=== PATIENT | male | born 1950 | race Two or more races ===

== ENCOUNTER 2020-08-15 19:02 | Inpatient (IN) | payer OTHER, SELFPAY ==
[2020-08-15] VITALS (20 sets, daily range): BP systolic 178–232; BP diastolic 101–155; PULSE 100–147; RESP 16–27; TEMP 36.4–36.7; O2SAT 95–98; BMI 20.3
--- NOTE | 2020-08-15 19:06 | XR_ITS ---
PROCEDURE INFORMATION: Exam: XR Chest Exam date and time: 08/15/2020 7:06 PM Age: 70 years old Clinical indication: Sternal or substernal pain; Patient HX: Chest pain TECHNIQUE: Imaging protocol: XR of the chest. Views: 1 view. COMPARISON: No relevant prior studies available. FINDINGS: Airway: The airways are patent. Lungs: No acute interstitial or airspace disease. Pleural spaces: There are no pleural effusions present. There is no evidence of pneumothorax. Heart/Mediastinum: Heart is of normal size and morphology. Bones/joints: No acute skeletal abnormality or aggressive osseous lesion. IMPRESSION: Negative for acute thoracic pathology.
--- NOTE | 2020-08-15 19:06 | HMH.EDGENADL ---
ED Disposition Clinical Impression: Alcohol use disorder Pancreatitis Qualifiers: Chronicity: acute Pancreatitis type: alcohol induced Acute pancreatitis complication: unspecified Qualified Code(s): K85.20 - Alcohol induced acute pancreatitis without necrosis or infection Disposition: Admitted As Inpatient Condition on Discharge: Fair - Critical Care Critical Care Time: No Attestation: On , the high probability of a clinically significant, sudden or life threatening deterioration of the following system(s) required my full and direct attention, intervention and personal management. The time I documented below is in addition to time spent performing reported procedures but includes the following listed in this critical care notation. Medical Decision Making - Medical Records Medical records reviewed: Yes: I reviewed the patient's medical records. - Regino Inquiry Pt receiving controlled substance: No Vital Signs: 08/15/20 19:02 08/15/20 19:09 08/15/20 19:14 Temperature Pulse Rate 130 H 130 H Pulse Rate [Left Radial] 127 H Respiratory Rate 20 24 25 H Blood Pressure 178/118 H Blood Pressure [Right Arm] 196/155 H Blood Pressure Mean Blood Pressure Mean [Right Arm] 168 Blood Pressure Source Manual Cuff/ Auscultation Blood Pressure Source [Right Arm] Automatic Cuff Blood Pressure Position Standing Blood Pressure Position [Right Arm] Sitting 02 Sat by Pulse Oximetry 96 95 95 Oxygen Delivery Method Room Air Room Air 08/15/20 19:15 08/15/20 19:25 08/15/20 19:30 Temperature Pulse Rate 136 H 124 H 121 H Pulse Rate [Left Radial] Respiratory Rate 24 24 Blood Pressure 202/125 H 202/121 H Blood Pressure [Right Arm] Blood Pressure Mean 153 148 Blood Pressure Mean [Right Arm] Blood Pressure Source Blood Pressure Source [Right Arm] Blood Pressure Position Blood Pressure Position [Right Arm] 02 Sat by Pulse Oximetry 96 97 96 Oxygen Delivery Method 08/15/20 19:38 08/15/20 19:45 08/15/20 20:00 Temperature Pulse Rate 122 H 121 H 126 H Pulse Rate [Left Radial] Respiratory Rate 27 H 24 25 H Blood Pressure 214/124 H 214/126 H Blood Pressure [Right Arm] Blood Pressure Mean 154 163 Blood Pressure Mean [Right Arm] Blood Pressure Source Blood Pressure Source [Right Arm] Blood Pressure Position Blood Pressure Position [Right Arm] 02 Sat by Pulse Oximetry 97 97 97 Oxygen Delivery Method 08/15/20 20:23 08/15/20 20:30 08/15/20 22:03 Temperature Pulse Rate 147 H 132 H 120 H Pulse Rate [Left Radial] Respiratory Rate Blood Pressure 207/124 H Blood Pressure [Right Arm] Blood Pressure Mean 151 Blood Pressure Mean [Right Arm] Blood Pressure Source Blood Pressure Source [Right Arm] Blood Pressure Position Blood Pressure Position [Right Arm] 02 Sat by Pulse Oximetry 98 98 96 Oxygen Delivery Method 08/15/20 22:09 08/15/20 22:10 08/15/20 22:16 Temperature Pulse Rate 122 H 122 H 121 H Pulse Rate [Left Radial] Respiratory Rate 18 18 16 Blood Pressure 232/123 H 193/118 H 193/120 H Blood Pressure [Right Arm] Blood Pressure Mean 159 146 156 Blood Pressure Mean [Right Arm] Blood Pressure Source Blood Pressure Source [Right Arm] Blood Pressure Position Blood Pressure Position [Right Arm] 02 Sat by Pulse Oximetry 95 Oxygen Delivery Method 08/15/20 22:22 08/15/20 22:35 Temperature 98.1 F Pulse Rate 115 H 100 H Pulse Rate [Left Radial] Respiratory Rate 16 18 Blood Pressure 185/124 H 196/107 H Blood Pressure [Right Arm] Blood Pressure Mean 148 Blood Pressure Mean [Right Arm] Blood Pressure Source Blood Pressure Source [Right Arm] Blood Pressure Position Blood Pressure Position [Right Arm] 02 Sat by Pulse Oximetry 96 Oxygen Delivery Method - Lab Data Lab Results 08/15/20 19:06: WBC 18.8 H, RBC 5.33, Hgb 16.3, Hct 49.1, MCV 92.1, MCH 30.
[2020-08-15 19:16] LABS: Basophils # 0.1 K/mm3 (0-0.2); Basophils % 0.2 % (0.1-2.0); Eosinophils # 0.1 K/mm3 (0.0-0.4); Eosinophils % 0.3 % (0.1-12.0); Hematocrit 49.1 % (42.0-52.0); Hemoglobin 16.3 g/dL (14.1-18.0); Lymphocytes # 0.4 K/mm3 (0.7-4.5); Lymphocytes % 2.2 % (10-50); Mean Corpuscular HGB Conc 33.2 g/dL (31.8-35.4); Mean Corpuscular Hemoglobin 30.6 pg (27.0-31.2); Mean Corpuscular Volume 92.1 fl (80-94); Mean Platelet Volume 7.5 fl (7.4-10.4); Monocytes # 0.6 K/mm3 (0.1-1.0); Monocytes % 3.4 % (1.7-9.3); Neutrophils # 17.7 K/mm3 (1.8-7.8); Neutrophils % 93.9 % (37.0-80.0); Platelet Count 181 K/mm3 (142-424); Red Blood Count 5.33 M/mm3 (4.60-6.20); Red Cell Distribution Width 14.2 % (11.5-17.5); White Blood Count 18.8 K/mm3 (4.8-10.8)
[2020-08-15 19:25] LABS: Alanine Aminotransferase 70 U/L (12-78); Albumin Level 4.6 g/dl (3.5-5.0); Albumin/Globulin Ratio 1.1 (1.1-1.8); Alkaline Phosphatase 151 U/L (38-126); Anion Gap 21.4 mEq/L (5-15); Aspartate Amino Transferase 99 U/L (17-59); Bilirubin,Total 1.1 mg/dl (0.2-1.3); Blood Urea Nitrogen 12 mg/dl (9-20); Calcium 8.4 mg/dl (8.4-10.2); Carbon Dioxide 21 mmol/L (22.0-30.0); Chloride 102 mmol/L (98-107); Creatinine Clearance Estimated 56 mL/min (50-200); Estimated Glomerular Filt Rate 111 ml/min (>60); Ethyl Alcohol 63 mg/dl (0-10); GFR (African American) 134 ML/MIN (>60); Globulin 4.1 g/dL (1.3-3.2); Glucose 146 mg/dl (74-100); Potassium 3.4 mmoL/L (3.5-5.1); Sodium 141 mmol/L (136-145); Total Protein,Serum 8.7 g/dl (6.3-8.2)
[2020-08-15 19:28] LABS: MANUAL DIFFERENTIAL MANUAL DIFFERENTIAL (MANUAL DIFF)
[2020-08-15 19:34] LABS: D-Dimer 1.94 ug/mL (0.0-0.5)
[2020-08-15 19:37] LABS: Lipase 2139 U/L (23-300)
[2020-08-15 19:39] LABS: Troponin I 0.02 ng/ml (0.00-0.034)
--- NOTE | 2020-08-15 19:47 | CT_ITS ---
PROCEDURE INFORMATION: Exam: CTA Chest With Contrast Exam date and time: 08/15/2020 7:47 PM Age: 70 years old Clinical indication: Sternal or substernal pain; Patient HX: Chest pain with elevated d dimer (1.94); Additional info: Chest pain, elevated d-dimer TECHNIQUE: Imaging protocol: Computed tomographic angiography of the chest with contrast. 3D rendering (Not supervised by radiologist): MIP and/or 3D reconstructed images were created by the technologist. Radiation optimization: All CT scans at this facility use at least one of these dose optimization techniques: automated exposure control; mA and/or kV adjustment per patient size (includes targeted exams where dose is matched to clinical indication); or iterative reconstruction. Contrast material: ISOVUE 370; Contrast volume: 70 ml; Contrast route: INTRAVENOUS (IV); COMPARISON: CR XR CHEST PORTABLE 08/15/2020 7:17 PM FINDINGS: Pulmonary arteries: No pulmonary emboli noted within the main pulmonary arteries or proximal segmental branches. Distal segmental branches are obscured by respiratory motion. Aorta: The aorta is normal. Left vertebral artery arises directly from the aortic arch, a normal variant. Thyroid: The thyroid gland is normal. Lungs: There is subpleural atelectasis of the dependent portions of the lungs. Lung parenchyma is mildly obscured by respiratory motion. Grossly, no acute interstitial or airspace disease is noted. The airways are patent. Pleural spaces: Unremarkable. No pneumothorax. No pleural effusion. Heart: The heart is mildly enlarged. There is mild atherosclerotic calcification of the coronary arteries. No pericardial thickening or effusion. Lymph nodes: Unremarkable. No enlarged lymph nodes. Intraperitoneal space: Severe pancreatic parenchymal inflammation and peripancreatic fat stranding/free fluid. Bones/joints: Multilevel old/healed right rib fractures. Multilevel old/healed left rib fractures. No acute skeletal pathology. Mild multilevel degenerative changes of the spine, as manifested by multilevel anterior osteophytes and multilevel decrease in intervertebral disc space. Soft tissues: Unremarkable. Other findings: No other acute findings in the visualized upper abdominal organs. IMPRESSION: 1. No pulmonary emboli noted within the main pulmonary arteries or proximal segmental branches. Distal segmental branches are obscured by respiratory motion. 2. Partially visualized severe acute pancreatitis. Consider correlation with contrast enhanced abdomen and pelvic CT. 3. No other acute thoracic pathology is identified. 4. Incidental findings as detailed above.
[2020-08-15 19:56] LABS: Neutrophils % 95 % (42-76); Total Cells Counted 100
[2020-08-15 19:57] LABS: Platelet Estimate Normal; RBC Morphology Normal
--- NOTE | 2020-08-15 20:00 | ECG_ITS ---
APPROVED REPORT Exam: Resting ECG HR:131 bpm ECG Measurements Heart Rate 131 AXES KS 138 P 74 QRSd 92 QRS 97 QT 306 T 51 QTc 451 Conclusion Sinus tachycardia Late r wave progression Isolated q in iii of questionable significance Abnormal ECG Electronically signed by : Ezekiel Acosta, 08/16/2020 07:10:30
--- NOTE | 2020-08-15 22:44 | PC.NURSE ---
patient up to floor via wheelchair.
[2020-08-16] VITALS (8 sets, daily range): BP systolic 145–152; BP diastolic 87–90; PULSE 94–150; RESP 16–28; TEMP 36.6–37.1; O2SAT 90–98; BMI 20.3
[2020-08-16] LABS: Troponin I 0.02 ng/ml (0.00-0.034)
[2020-08-16 01:49] LABS: Troponin I 0.03 ng/ml (0.00-0.034)
--- NOTE | 2020-08-16 03:41 | PC.NURSE ---
Pt remains confused. Is alert to self only. Has slept at intervals. Denies any pain or discomfort. CIWA is currently a 3. Pt was given a shower shortly after arrival to floor. He was noted to have urine stains to pants. He ambulates with assist x1. Medication administered per mar. Safety measures in place. New IV placed in RFA after pt dislodged prior IV. No other concerns at this time. Will continue to monitor.
[2020-08-16 07:10] LABS: Basophils # 0.1 K/mm3 (0-0.2); Basophils % 0.3 % (0.1-2.0); Eosinophils # 0.3 K/mm3 (0.0-0.4); Eosinophils % 1.4 % (0.1-12.0); Hematocrit 45.4 % (42.0-52.0); Hemoglobin 15.9 g/dL (14.1-18.0); Lymphocytes # 0.5 K/mm3 (0.7-4.5); Lymphocytes % 2.5 % (10-50); Mean Corpuscular Hemoglobin 31.5 pg (27.0-31.2); Mean Platelet Volume 7.8 fl (7.4-10.4); Monocytes # 0.4 K/mm3 (0.1-1.0); Monocytes % 1.9 % (1.7-9.3); Neutrophils # 17.5 K/mm3 (1.8-7.8); Platelet Count 120 K/mm3 (142-424); Red Blood Count 5.05 M/mm3 (4.60-6.20); Red Cell Distribution Width 14.3 % (11.5-17.5); White Blood Count 18.6 K/mm3 (4.8-10.8)
[2020-08-16 07:22] LABS: Alanine Aminotransferase 76 U/L (12-78); Albumin Level 4.1 g/dl (3.5-5.0); Albumin/Globulin Ratio 1.2 (1.1-1.8); Alkaline Phosphatase 122 U/L (38-126); Bilirubin,Total 2.2 mg/dl (0.2-1.3); Blood Urea Nitrogen 15 mg/dl (9-20); Carbon Dioxide 19 mmol/L (22.0-30.0); Chloride 107 mmol/L (98-107); Creatinine Clearance Estimated 56 mL/min (50-200); Estimated Glomerular Filt Rate 111 ml/min (>60); GFR (African American) 134 ML/MIN (>60); Globulin 3.5 g/dL (1.3-3.2); Glucose 174 mg/dl (74-100); Magnesium 2.3 mg/dl (1.6-2.3); Phosphorous 3.2 mg/dl (2.5-4.5); Sodium 136 mmol/L (136-145); Total Protein,Serum 7.6 g/dl (6.3-8.2)
[2020-08-16 07:25] LABS: MANUAL DIFFERENTIAL MANUAL DIFFERENTIAL (MANUAL DIFF)
[2020-08-16 07:28] LABS: Aspartate Amino Transferase 138 U/L (17-59)
[2020-08-16 08:25] LABS: POC Glucose,Bedside 182 (70-110)
--- NOTE | 2020-08-16 09:17 | HMH.PHAVTE ---
[facility] Pharmacy VTE Monitoring - Patient Demographics Admission date: 08/15/20 Report Date: 08/16/20 Time: 09:17 Allergies/Adverse Reactions: Patient Allergies No Known Allergies Allergy (Verified 08/15/20 19:06) Height: 1.7 m Weight: 58.9 kg Patient Problems: Current Active Problems Pancreatitis (Acute) Alcohol use disorder (Acute) - VTE Risk Labs: VTE Related Lab Results Hgb 15.9 g/dL (14.1-18.0) 08/16/20 07:00 Hct 45.4 % (42.0-52.0) 08/16/20 07:00 Plt Count 120 K/mm3 (142-424) L D 08/16/20 07:00 BUN 15 mg/dl (9-20) 08/16/20 07:00 Creatinine 0.70 mg/dl (0.66-1.25) 08/16/20 07:00 Estimated Creat Clear 56 mL/min (50-200) 08/16/20 07:00 - Prophylaxis VTE Prophylaxis Ordered?: Yes Types of VTE Prophylaxis: TEDS Knee High, Pharmacological Location of Applied Device: Bilateral Lower Extremeties Pharmacologic Type: Enoxaparin
[2020-08-16 09:21] LABS: Amylase 149 U/L (30-110)
[2020-08-16 09:31] LABS: Lipase 753 U/L (23-300)
[2020-08-16 10:05] LABS: Eosinophils % 1 % (0-3); Lymphocytes % 2 % (10-50); Monocytes % 3 % (2-9); Neutrophils % 94 % (42-76); Total Cells Counted 100
[2020-08-16 10:06] LABS: Platelet Estimate Normal
[2020-08-16 10:07] LABS: Hypochromasia 1+; Microcytosis 1+
--- NOTE | 2020-08-16 10:25 | HMH.HP ---
*Admission Date: 08/15/20 *Chief complaint: abd pain *History of present illness: 70-year-old male presented to the emergency department with chest pain. Pain started yesterday evening. It is described as a burning, tightness located near his sternum per er note. Does not radiate to the jaw, back, arm. Admits to daily alcohol use, about 6 beers. Denies whiskey. No history of coronary artery disease or hypertension. No tobacco use. No recent illness, fevers, chills, nausea, vomiting. No lower extremity swelling or palpitations. per dr note this am pt laying in bed opens eyes when spoken to and nods head when asked if abd hurts. pt admitted for monitoring of labs and iv fluids. [facility] History I have reviewed the patient's past medical history: Yes Medical History: Reports:: Coronary Artery Disease, Hypertension *Have you ever received a pneumonia vaccine?: No *Have you received a flu vaccine this season?: No - *Social History Smoking Status: Unknown if ever smoked Alcohol Intake: current *Occupational Status:: employed *Travel in the last 8 weeks: Outside the [facility] Family Hx:: Unable to obtain Review of Systems - Review of Systems Review of systems:: pertinent systems reviewed and negative unless documented below - Constitutional Denies chills, Denies weight loss - Eyes Denies change in vision - ENT Denies bleeding gums - *Cardiovascular Reports chest pain, Reports chest pain with activity - *Respiratory Denies chest congestion - *Gastrointestinal Reports abdominal pain, Reports nausea - *Genitourinary Denies urinary frequency - *Musculoskeletal Denies decreased muscle mass - Integumentary/Breasts Denies rash - *Neurologic Denies dizziness, Denies headache(s), Denies numbness - Psychiatric Denies lack of enjoyment - Endocrine Denies excessive sweating - Hematologic/Lymphatic Denies easy bruising - Allergic/Immunologic Denies GI upset with certain foods Meds Home Medications Medication Instructions Recorded Confirmed Type No Known Home Medications 08/15/20 08/16/20 History Allergies Allergy/AdvReac Type Severity Reaction Status Date / Time No Known Allergies Allergy Verified 08/15/20 19:06 Exam Vital signs and Labs for Last 24 Hours: Temp Pulse Resp BP Pulse Ox 97.8 F 118 H 16 148/88 H 97 08/16/20 07:25 08/16/20 07:25 08/16/20 07:25 08/16/20 07:25 08/16/20 07:25 Laboratory Results - last 24 hr 08/15/20 19:06: WBC 18.8 H, RBC 5.33, Hgb 16.3, Hct 49.1, MCV 92.1, MCH 30.6, MCHC 33.2, RDW 14.2, Plt Count 181, MPV 7.5, Neut % (Auto) 93.9 H, Lymph % (Auto) 2.2 L, Lipscomb % (Auto) 3.4, Eos % (Auto) 0.3, Baso % (Auto) 0.2, Neut # (Auto) 17.7 H, Lymph # (Auto) 0.4 L, Lipscomb # (Auto) 0.6, Eos # (Auto) 0.1, Baso # (Auto) 0.1, Total Counted 100, Neutrophils % (Manual) 95 H, Band Neutrophils % 5.0, Platelet Estimate Normal, RBC Morphology Normal 08/15/20 19:06: Sodium 141, Potassium 3.4 L, Chloride 102, Carbon Dioxide 21 L, Anion Gap 21.4 H, BUN 12, Creatinine 0.70, Estimated Creat Clear 56, Estimated GFR 111, Est GFR ( Amer) 134, Glucose 146 H, Calcium 8.4, Total Bilirubin 1.1, AST 99 H, ALT 70, Alkaline Phosphatase 151 H, Troponin I 0.02, Total Protein 8.7 H, Albumin 4.6, Globulin 4.1 H, Albumin/Globulin Ratio 1.1, Lipase 2139 H 08/15/20 19:06: Plasma/Serum Alcohol 63 H 08/15/20 19:15: D-Dimer 1.94 H 08/15/20 23:25: Troponin I 0.02 08/16/20 01:22: Troponin I 0.03 08/16/20 07:00: WBC 18.6 H, RBC 5.05, Hgb 15.9, Hct 45.4, MCV 90.0, MCH 31.5 H, MCHC 35.0, RDW 14.3, Plt Count 120 L D, MPV 7.8, Neut % (Auto) 94.0 H, Lymph % (Auto) 2.5 L, Lipscomb % (Auto) 1.9, Eos % (Auto) 1.4, Baso % (Auto) 0.3, Neut # (Auto) 17.5 H, Lymph # (Auto) 0.5 L, Lipscomb # (Auto) 0.4, Eos # (Auto) 0.3, Baso # (Auto) 0.1, Total Counted 100, Neutrophils % (Manual) 94 H, Lymphocytes % (Manual) 2 L, Monocytes % (Manual) 3, Eosinophils % (Manual) 1, Platelet Estimate Normal, Hypochromasia 1
[2020-08-16 11:38] LABS: POC Glucose,Bedside 176 (70-110)
[2020-08-16 20:25] LABS: POC Glucose,Bedside 182 (70-110)
[2020-08-17] VITALS (10 sets, daily range): BP systolic 115–141; BP diastolic 75–93; PULSE 107–132; RESP 16–26; TEMP 36.1–36.9; O2SAT 92–99; BMI 20.1
--- NOTE | 2020-08-17 02:33 | PC.NURSE ---
Addendum entered by Emma Andrade RN 08/17/20 05:08: patient opened eyes, made eye contact with nurse, smiled and tried to belt picker wrapper on blanket. Still doesn't respond to questions. Although patient seems more alert than previously it was time for another dose of Ativan which was administered. Patient shows no s/s of acute distress at this time. Has call light within reach, bed at lowest level; will continue to monitor. Original Note: phoned into auto service writer while doing the assessment. Patient able to state his name. Received bed bath this shift, applied mouth swab to mouth. [id number] called for status of patient; her main concern is BP and heart rate. Patient BP elevated first part of shift with HR in 130 & 140's with scheduled Ativan administered and CIWA score 2. Call light in reach, bed at lowest level; Will continue to monitor.
[2020-08-17 05:07] LABS: POC Glucose,Bedside 187 (70-110)
[2020-08-17 06:39] LABS: Basophils % 0.2 % (0.1-2.0); Eosinophils # 0.1 K/mm3 (0.0-0.4); Eosinophils % 0.5 % (0.1-12.0); Hematocrit 44.2 % (42.0-52.0); Lymphocytes # 0.8 K/mm3 (0.7-4.5); Lymphocytes % 5.5 % (10-50); Mean Corpuscular Hemoglobin 30.8 pg (27.0-31.2); Mean Corpuscular Volume 90.6 fl (80-94); Mean Platelet Volume 9.6 fl (7.4-10.4); Monocytes # 0.4 K/mm3 (0.1-1.0); Monocytes % 3.2 % (1.7-9.3); Neutrophils # 12.5 K/mm3 (1.8-7.8); Neutrophils % 90.7 % (37.0-80.0); Platelet Count 89 K/mm3 (142-424); Red Blood Count 4.87 M/mm3 (4.60-6.20); Red Cell Distribution Width 14.3 % (11.5-17.5); White Blood Count 13.8 K/mm3 (4.8-10.8)
[2020-08-17 06:41] LABS: MANUAL DIFFERENTIAL MANUAL DIFFERENTIAL (MANUAL DIFF)
[2020-08-17 06:44] LABS: Chloride 106 mmol/L (98-107); Potassium 3.9 mmoL/L (3.5-5.1); Sodium 138 mmol/L (136-145)
[2020-08-17 06:47] LABS: Amylase 65 U/L (30-110); Anion Gap 9.9 mEq/L (5-15); Blood Urea Nitrogen 31 mg/dl (9-20); Calcium 8.2 mg/dl (8.4-10.2); Carbon Dioxide 26 mmol/L (22.0-30.0); Creatinine Clearance Estimated 50 mL/min (50-200); Estimated Glomerular Filt Rate 66 ml/min (>60); GFR (African American) 80 ML/MIN (>60); Glucose 196 mg/dl (74-100); Lipase 288 U/L (23-300)
--- NOTE | 2020-08-17 09:23 | P.PN_ITS ---
Internal Medicine - PN: Subj *Date: 08/17/20 *Time: 16:19 Interval history: 70-year-old male patient lying in bed resting quietly with eyes closed, awakens to verbal stimuli. Denies pain when abdomen is palpated. Patient still tachycardic heart rate in the 120s, room air oxygen saturation 93% Exam Vital signs and Labs for Last 24 Hours: Temp Pulse Resp BP Pulse Ox 98.1 F 130 H 20 136/83 93 L 08/17/20 08:10 08/17/20 08:10 08/17/20 08:10 08/17/20 08:10 08/17/20 08:10 Laboratory Results - last 24 hr 08/16/20 07:00: Total Counted 100, Neutrophils % (Manual) 94 H, Lymphocytes % (Manual) 2 L, Monocytes % (Manual) 3, Eosinophils % (Manual) 1, Platelet Estimate Normal, Hypochromasia 1+, Microcytosis 1+ 08/16/20 07:00: Amylase 149 H, Lipase 753 H 08/16/20 11:26: POC Glucose 176 H 08/16/20 20:16: POC Glucose 182 H 08/17/20 04:49: POC Glucose 187 H 08/17/20 06:20: Amylase 65 D, Lipase 288 08/17/20 06:20: WBC 13.8 H D, RBC 4.87, Hgb 15.0, Hct 44.2, MCV 90.6, MCH 30.8, MCHC 34.0, RDW 14.3, Plt Count 89 L D, MPV 9.6, Neut % (Auto) 90.7 H, Lymph % (Auto) 5.5 L, Stanly % (Auto) 3.2, Eos % (Auto) 0.5, Baso % (Auto) 0.2, Neut # (Auto) 12.5 H, Lymph # (Auto) 0.8, Stanly # (Auto) 0.4, Eos # (Auto) 0.1, Baso # (Auto) 0.0 08/17/20 06:20: Sodium 138, Potassium 3.9, Chloride 106, Carbon Dioxide 26 D, Anion Gap 9.9, BUN 31 H D, Creatinine 1.10 D, Estimated Creat Clear 50, Estimated GFR 66, Est GFR ( Amer) 80 D, Glucose 196 H, Calcium 8.2 L I & O for Last 24 hours: Intake & Output 08/14/20 08/15/20 08/16/20 08/17/20 23:59 23:59 23:59 23:59 Intake Total 1999 0 / 0 0 / 0 Balance 1999 0 / 0 0 / 0 Weight 129 lb 13.636 oz 129 lb 13.636 oz 128 lb 7 oz - Constitutional no acute distress, thin, chronically ill appearing - *Routine HEENT Exam Head: Present: normocephalic Eye: Present: EOMI ENT: Present: mucous membranes dry - *Routine Neck Exam Present: trachea midline. Absent: tracheal deviation - *Routine Respiratory Exam Present: CTA bilaterally. Absent: accessory muscle use - *Routine Cardiovascular Exam Present: RRR - *Routine Abdominal Exam Present: soft, normoactive bowel sounds. Absent: tenderness, distended - *Routine Extremities Exam Present: full ROM, pulses intact. Absent: cyanosis, clubbing, edema - *Routine Skin Exam Present: intact, warm, jaundice. Absent: cyanosis - *Routine Neurological Exam Present: alert. Absent: motor deficit, pronator drift - Routine Psychiatric Exam Present: unable to assess Assessment and Plan (1) Alcohol use disorder Status: Acute Category: Medical (2) Pancreatitis Status: Acute Qualifiers: Chronicity: acute Pancreatitis type: alcohol induced Acute pancreatitis complication: unspecified Qualified Code(s): K85.20 - Alcohol induced acute pancreatitis without necrosis or infection Category: Medical Code(s): K85.90 - Acute pancreatitis without necrosis or infection, unspecified - Assessment and plan all Dx Assessment and Plan for all problems:: Rounded w/ Dr. Short, all orders per Dr. Short: 1. Ammonia level 2. Troponin 3. Mag 4. PT/OT eval
[2020-08-17 10:08] LABS: Magnesium 2.9 mg/dl (1.6-2.3)
[2020-08-17 10:09] LABS: Ammonia 15 umol/L (9-30)
[2020-08-17 10:19] LABS: Eosinophils % 2 % (0-3); Lymphocytes % 11 % (10-50); Monocytes % 2 % (2-9); Neutrophils % 83 % (42-76); Total Cells Counted 100
[2020-08-17 10:20] LABS: Hypochromasia 3+; Platelet Estimate Slight Decrease
[2020-08-17 10:21] LABS: Troponin I 0.02 ng/ml (0.00-0.034)
[2020-08-17 10:22] LABS: Rouleaux 1+
--- NOTE | 2020-08-17 11:29 | SW/DCPLANNER ---
Addendum entered by Nazanin Kincaid 08/23/20 15:11: Graham with [facility] has called me back stating they do not provide patients medication (Creon) at their pharmacy. I have attempted to contact family to inform them of this and no answer at this time. VM has been left to return my phone call. Addendum entered by Nazanin Kincaid 08/23/20 14:57: I have attempted to contact patients son with no answer at this time: regarding [facility]. Addendum entered by [facility] 08/23/20 11:26: I will provide this patients son with information regarding [facility] in [place] for patients without health insurance. Patients son is here to pick this patient up. No further needs/questions at this time. Addendum entered by Nazanin Kincaid 08/23/20 10:23: Guadalupe Castillo is currently reviewing this patients information. Original Note: I completed Medicaid application for this patient based on information from patients son (Mohsen).
[2020-08-17 11:52] LABS: POC Glucose,Bedside 170 (70-110)
--- NOTE | 2020-08-17 12:11 | HMH.PTEV ---
Physical Therapy Evaluation Rehab PT IP Evaluation Start: 08/17/20 09:24 Freq: ONCE Status: Active Protocol: Document 08/17/20 12:07 PHOMIKEY (Rec: 08/17/20 12:11 PHORNE [id number]) Subjective/History History History 70 yohm who presents with pancreatitis and generalized weakness. He was unable to give any baseline information this am. Subjective Subjective Pt with no c/o this am. Rehab PT IP Eval Objective Appearance Patient Behavior Appropriate Patient Orientation Person Difficulty following instructions mild Ambulation Patient Able to Ambulate Yes Balance Ability to Arise Able, uses arms to help Sitting Balance Steady, safe Standing Balance Steady, wide stance Dynamic Sitting Balance Ability Fair Dynamic Standing Balance Ability Poor Transfers Bed Transfer Ability Moderate x 1 (50% assist) Chair Transfer Ability Moderate x 1 (50% assist) Sit to Stand Bed Transfer Ability Moderate x 1 (50% assist) Sit to Stand Chair Transfer Ability Moderate x 1 (50% assist) ROM All Extremities PT ROM Status WFL MMT All Extremities PT MMT WFL Abnormal MMT Grade grossly 3/5 Rehab PT IP prob,goals,plan Problems Date of Evaluation: 08/17/20 PT IP Problems Bed Mobility,Transfers,Gait, Self care Rehab Potential Rehab Potential Good Plan PT Intervention Plan Bed Mobility,Transfers,Gait, Self care,Therapeutic Exercise PT Plan Frequency BID Duration LOS Discharge Goals Bed Transfer Ability Minimal x 1 (25% assist) Sit to Stand Chair Transfer Ability Minimal x 1 (25% assist) Ambulation Assistive Device Rolling Walker Ambulation Distance (feet) 20 Discharge Plan PT Discharge Plan Pt is currently most appropriate for rehab placement once medically stable. However, this is likely due to increased sedation from medications and will likely change as he becomes more alert. He should be able to return to home once his level of alertness improves. G -code Required No Eval Complexity Eval Charge Codes 54284 - Moderate Complexity PHYSI
--- NOTE | 2020-08-17 13:54 | HMH.OTEV ---
OT Inpatient Evaluation Rehab OT IP Evaluation Start: 08/17/20 09:25 Freq: ONCE Status: Complete Protocol: [facility] (Rec: 08/17/20 13:54 [facility] [id number]) Rehab OT IP Assessment Subjective History Pt oriented x 2 on arrival. Pt agreeable to complete evaluation. Pt's son present during evaluation. Pt was admitted via ED on 08/15/20 due to Acute pancreatitis. Pt has a past medical history of CAD and HTN. Pt's son reports prior to hospitalization he lived with both of of his sons . Son claims patient was completely independent with all ADLs and IADLs. Pt did not use a walker Subjective Pt resting in chair on arriva. Objective Patient Orientation Person,Birthday Upper Extremity Gross ROM WFL Transfer Training Sit/Stand/Pivot Transfer Assist Level Moderate x 2 (50% assist) Rehab OT IP prob,goals,plan Problems Date of Evaluation: 08/17/20 OT IP Problems Bed Mobility,Transfers,Gait, Balance,Self care,Safety Rehab Potential Rehab Potential Good Equipment Needs Assistive Devices Rolling / Wheeled Walker Plan OT intervention Plan Bed Mobility,Transfers,Gait, Balance,Self care,Safety, Therapeutic Exercise OT Plan Frequency BID Duration LOS Discharge Goals Bed Mobility Ability Standby Assistance Sit to Stand Chair Transfer Ability Minimal x 1 (25% assist) Chair Transfer Ability Contact Guard/Hand Hold, Minimal x 1 (25% assist) Chair Transfer Technique Sit to/from Ambulatory Chair Transfer Assistive Devices Rolling Walker Feeding Ability Assist with Tray Set Up Lower Body Dressing Ability Assistance X1 Upper Body Dressing Ability Standby Assistance Bathing Ability Assistance x1 Performing Toilet Hygiene Ability Standby Assistance Overall Commode/Toilet Transfer Ability Assistance x1 Commode/Toilet Transfer Technique Sit to/from Ambulatory Discharge Plan OT Discharge Plan At this time pt would benefit from rehab placement following hospital stay. However, pt is still very sedated due to medication. His functional
[2020-08-17 16:13] LABS: POC Glucose,Bedside 157 (70-110)
--- NOTE | 2020-08-17 16:23 | PC.NURSE ---
Pt has been pleasant and cooperative this shift. Alert to self and occasionally place. Pt has slept the majority of the shift, although he awoke around noon and sat in the recliner for a couple of hours. Pt is on room air with sats. >90%. Lungs CTA. No edema noted. Skin is C/D/I. Pt complained of abdominal pain/nausea X1 today and received Toradol + Zofran per MAR with favorable results. Pt ambulates with assistance X1. Pt is incontinent and brief is in place. Urine is clear and yellow. No BM thus far today. Telemetry reveals ST. FSBS results have been 170 and 157. 20 G peripheral IV in the RT forearm is patent and infusing NS @ 100 ML/HR. VSS. Call light within reach. Will continue to monitor.
[2020-08-17 23:22] LABS: POC Glucose,Bedside 195 (70-110)
[2020-08-18] VITALS (10 sets, daily range): BP systolic 131–167; BP diastolic 79–91; PULSE 90–111; RESP 18–20; TEMP 36.4–37.1; O2SAT 94–99
--- NOTE | 2020-08-18 04:05 | PC.NURSE ---
pt has slept off and on throughout the night. iv patent and infusing per order. bm this shift. pt has been pleasant and alert. responds to staff and demonstrates learning. vss. telemetry in use and reads as sinus tach. call light in reach. will continue to monitor pt condition.
[2020-08-18 05:49] LABS: POC Glucose,Bedside 173 (70-110)
[2020-08-18 08:14] LABS: Basophils % 0.2 % (0.1-2.0); Eosinophils % 0.5 % (0.1-12.0); Hematocrit 33.5 % (42.0-52.0); Hemoglobin 11.4 g/dL (14.1-18.0); Lymphocytes # 0.7 K/mm3 (0.7-4.5); Lymphocytes % 9.5 % (10-50); Mean Corpuscular HGB Conc 34.1 g/dL (31.8-35.4); Mean Corpuscular Hemoglobin 31.7 pg (27.0-31.2); Mean Corpuscular Volume 92.8 fl (80-94); Mean Platelet Volume 9.8 fl (7.4-10.4); Monocytes # 0.4 K/mm3 (0.1-1.0); Monocytes % 4.9 % (1.7-9.3); Neutrophils # 6.6 K/mm3 (1.8-7.8); Platelet Count 80 K/mm3 (142-424); Red Blood Count 3.61 M/mm3 (4.60-6.20); Red Cell Distribution Width 14.4 % (11.5-17.5); White Blood Count 7.8 K/mm3 (4.8-10.8)
[2020-08-18 08:20] LABS: Amylase 37 U/L (30-110); Anion Gap 7.6 mEq/L (5-15); Blood Urea Nitrogen 26 mg/dl (9-20); Calcium 7.5 mg/dl (8.4-10.2); Carbon Dioxide 26 mmol/L (22.0-30.0); Chloride 107 mmol/L (98-107); Creatinine Clearance Estimated 55 mL/min (50-200); Estimated Glomerular Filt Rate 95 ml/min (>60); GFR (African American) 115 ML/MIN (>60); Glucose 227 mg/dl (74-100); Lipase 122 U/L (23-300); MANUAL DIFFERENTIAL MANUAL DIFFERENTIAL (MANUAL DIFF); Potassium 3.6 mmoL/L (3.5-5.1); Sodium 137 mmol/L (136-145)
--- NOTE | 2020-08-18 09:21 | XR_ITS ---
PROCEDURE: XR ACUTE ABDOMEN SERIES CLINICAL INDICATION: Abd Pain COMPARISON: CT CT ANGIO CHEST from 08/15/2020 FINDINGS: Frontal view of the chest shows bibasilar atelectatic changes. Small bilateral effusions suspected. Upright and supine views of the abdomen shows gas-filled loops of small and large bowel with a few air-fluid levels suggesting ileus. No free air is evident. No acute bony findings. IMPRESSION: Bibasilar atelectasis with small bilateral effusions Findings suggesting ileus. Dictated by: Gray Bernabe MD 08/18/2020 12:21 Gray Bernabe MD in OV 08/18/2020 12:21
[2020-08-18 09:30] LABS: Lymphocytes % 12 % (10-50); Monocytes % 8 % (2-9); Neutrophils % 78 % (42-76); Total Cells Counted 100
[2020-08-18 09:31] LABS: Platelet Estimate Slight Decrease
[2020-08-18 09:32] LABS: Hypochromasia 1+
[2020-08-18 11:54] LABS: POC Glucose,Bedside 216 (70-110)
--- NOTE | 2020-08-18 11:54 | PC.NURSE ---
WHEN THIS RN ENTERED PATIENT ROOM, PATIENT WAS LYING ON THE FLOOR INFRONT OF THE RECLINER. THIS RN USED TABLET 76001DSN FOR LEGISLATIVE ANALYST. THIS RN ASSESSED PATIENT, PER PATIENT, HE IS IN NO PAIN FROM BEING ON THE FLOOR. PATIENT WOULD NOT EXPLAIN HOW HE ENDED UP ON THE FLOOR. THIS RN EDUCATED PATIENT IN REGARDS TO PATIENT SAFETY, CHAIR PAD ALARM IN PLACE. THIS RN EXPLAINED THE USE OF THE CALL LIGHT TO PATIENT. NO OTHER CONCERNS AT THIS TIME.
--- NOTE | 2020-08-18 13:51 | PC.NURSE ---
THIS RN WAS NOTIFIED BY BILLY HERNADEZ, SCHEDULING AGENT THAT PATIENT WAS ON THE FLOOR. THIS RN NOTIFIED DR. FERNANDEZ THRU A MESSAGE TO YUNIEL MARIEE RN. [place] MACHINE OPERATOR DEVICE [id number] WAS USED TO COMMUNICATE WITH PATIENT. PATIENT WAS EDUCATED ON PATIENT SAFTEY AND HOW TO USE CALL LIGHT.
[2020-08-18 16:07] LABS: POC Glucose,Bedside 218 (70-110)
--- NOTE | 2020-08-18 16:17 | PC.NURSE ---
PATIETN IS ALERT AND ORIENTED X2, LUNGS: EXPIRATORY RHONCHI HEARD, PULSES EQUAL. PATIENT HAS ASKED THIS RN FOR CERVEZA. PATIENT IS RELUCTANT TO SPEAK WITH THE EDITORIAL SPECIALIST. PATIENT'S SON STATED THAT PATIENT WAS ABLE TO WALK BEFORE COMING IN. PATIENT'S SON IS REQUESTING THAT PATIENT BE FED. NO OTHER CONCERNS AT THIS TIME.
[2020-08-18 20:38] LABS: POC Glucose,Bedside 205 (70-110)
--- NOTE | 2020-08-18 21:12 | P.PN_ITS ---
Internal Medicine - PN: Subj *Date: 08/18/20 *Time: 21:12 Interval history: 70-year-old male patient sitting up in bed, nods his head no when asked if he has any pain. Abdomen is slightly distended, patient denies pain when abdomen is palpated. special events planner has contacted son and discussed patient's care with son. Exam Vital signs and Labs for Last 24 Hours: Temp Pulse Resp BP Pulse Ox 97.5 F L 111 H 20 157/87 H 97 08/18/20 20:00 08/18/20 20:00 08/18/20 20:00 08/18/20 20:00 08/18/20 20:00 Laboratory Results - last 24 hr 08/17/20 23:15: POC Glucose 195 H 08/18/20 05:27: POC Glucose 173 H 08/18/20 07:56: WBC 7.8 D, RBC 3.61 L D, Hgb 11.4 L, Hct 33.5 L, MCV 92.8, MCH 31.7 H, MCHC 34.1, RDW 14.4, Plt Count 80 L, MPV 9.8, Neut % (Auto) 85.0 H, Lymph % (Auto) 9.5 L, [place] % (Auto) 4.9, Eos % (Auto) 0.5, Baso % (Auto) 0.2, Neut # (Auto) 6.6, Lymph # (Auto) 0.7, [place] # (Auto) 0.4, Eos # (Auto) 0.0, Baso # (Auto) 0.0, Total Counted 100, Neutrophils % (Manual) 78 H, Band Neutrophils % 1.0, Lymphocytes % (Manual) 12, Monocytes % (Manual) 8, Basophils % (Manual) 1.0, Platelet Estimate Slight decrease, Hypochromasia 1+ 08/18/20 07:56: Sodium 137, Potassium 3.6, Chloride 107, Carbon Dioxide 26, Anion Gap 7.6, BUN 26 H, Creatinine 0.80 D, Estimated Creat Clear 55, Estimated GFR 95, Est GFR ( Amer) 115 D, Glucose 227 H, Calcium 7.5 L, Amylase 37, Lipase 122 08/18/20 11:39: POC Glucose 216 H 08/18/20 16:00: POC Glucose 218 H 08/18/20 20:11: POC Glucose 205 H I & O for Last 24 hours: Intake & Output 08/15/20 08/16/20 08/17/20 08/18/20 23:59 23:59 23:59 23:59 Intake Total 1999 0 / 0 1326 / 1446 2931 / 2931 Output Total 150 / 150 Balance 1999 0 / 0 1176 / 1296 2931 / 2931 Weight 129 lb 13.636 oz 129 lb 13.636 oz 128 lb 7 oz 127 lb 13.89 oz - Constitutional no acute distress, chronically ill appearing - *Routine HEENT Exam Head: Present: normocephalic Eye: Present: EOMI ENT: Present: mucous membranes moist - *Routine Neck Exam Present: trachea midline. Absent: tracheal deviation - *Routine Respiratory Exam Present: CTA bilaterally. Absent: accessory muscle use - *Routine Cardiovascular Exam Present: RRR - *Routine Abdominal Exam Present: soft, normoactive bowel sounds, distended, firm - *Routine Extremities Exam Present: full ROM, pulses intact, calf tenderness. Absent: cyanosis, clubbing, edema - *Routine Skin Exam Present: intact, dry, warm, jaundice. Absent: cyanosis, erythema - *Routine Neurological Exam Present: alert - Routine Psychiatric Exam Present: unable to assess Assessment and Plan (1) Alcohol use disorder Status: Acute Category: Medical (2) Pancreatitis Status: Acute Qualifiers: Chronicity: acute Pancreatitis type: alcohol induced Acute pancreatitis complication: unspecified Qualified Code(s): K85.20 - Alcohol induced acute pancreatitis without necrosis or infection Category: Medical Code(s): K85.90 - Acute pancreatitis without necrosis or infection, unspecified - Assessment and plan all Dx Assessment and Plan for all problems:: Rounded with Dr. Short, all orders per Dr. Short: 1. PT/OT eval 2. Acute abdominal series
[2020-08-19] VITALS (9 sets, daily range): BP systolic 142–173; BP diastolic 68–96; PULSE 80–100; RESP 18–19; TEMP 36.6–37.3; O2SAT 94–99; BMI 20.3
--- NOTE | 2020-08-19 04:30 | PC.NURSE ---
No acute changes. Pt continues to be be pleasantly confused. Pt is only alert to self. Denies any discomfort. Safety measures remain in place. Pt has tried multiple times to get OOB without assistance. No anxiety or tremors noted. He has been incontinent of urine. Pt remains tachycardic. No other concerns. Will continue to monitor.
[2020-08-19 05:46] LABS: POC Glucose,Bedside 146 (70-110)
[2020-08-19 07:14] LABS: Chloride 102 mmol/L (98-107); Potassium 3.1 mmoL/L (3.5-5.1); Sodium 132 mmol/L (136-145)
[2020-08-19 07:16] LABS: Amylase 33 U/L (30-110)
[2020-08-19 07:17] LABS: Anion Gap 6.1 mEq/L (5-15); Blood Urea Nitrogen 8 mg/dl (9-20); Calcium 7.3 mg/dl (8.4-10.2); Carbon Dioxide 27 mmol/L (22.0-30.0); Creatinine Clearance Estimated 56 mL/min (50-200); Estimated Glomerular Filt Rate 132 ml/min (>60); GFR (African American) 160 ML/MIN (>60); Glucose 224 mg/dl (74-100)
[2020-08-19 07:40] LABS: Lipase 37 U/L (23-300)
--- NOTE | 2020-08-19 09:45 | CT_ITS ---
PROCEDURE: CT HEAD/BRAIN WO CON CLINICAL INDICATION: ams Altered mental status, altered level of consciousness, confusion, disorientation COMPARISON: No exams were available for comparison TECHNIQUE: Axial images obtained. All CT scans at the facility use one or more dose reduction, viz: automated exposure control, ma/kV adjustment per patient size (including targeted exams where dose is matched to indication, i.e. head), or iterative reconstruction technique. FINDINGS: No midline shift, mass effect, intracranial hemorrhage, hydrocephalus, or extra-axial fluid collection is evident. There is generalized atrophy with hypoattenuation of the periventricular white matter consistent with microangiopathic changes. There is some heterogeneous cortical thickening involving the left frontal bone inferiorly and at the orbital roof. This is nonspecific. Paget's disease would be included in the differential diagnosis as well as fibrous dysplasia. Metastatic disease would also be included in the differential diagnosis.. No mastoid effusion. There is minimal mucosal thickening of the ethmoid sinuses and sphenoid sinus. IMPRESSION: 1. No acute intracranial findings. 2. Asymmetric thickening of the inferior aspect of the left frontal bone in the supraorbital region. This could be related to Paget's disease, fibrous dysplasia, or even metastatic disease. There are no previous exams available for comparison to determine the stability of this. Follow-up suggested to confirm stability. Dictated by: Gray Bernabe MD 08/19/2020 11:01 Gray Bernabe MD in [place] 08/19/2020 11:01
--- NOTE | 2020-08-19 09:46 | [facility]H.ACPN2 ---
Internal Medicine - PN: Subj *Date: 08/19/20 *Time: 09:00 Interval history: pt states no abd pain or discomfort per inter line Exam Vital signs and Labs for Last 24 Hours: Temp Pulse Resp BP Pulse Ox 98.0 F 95 H 18 168/90 H 98 08/19/20 07:25 08/19/20 07:25 08/19/20 07:25 08/19/20 07:25 08/19/20 07:25 Laboratory Results - last 24 hr 08/18/20 11:39: POC Glucose 216 H 08/18/20 16:00: POC Glucose 218 H 08/18/20 20:11: POC Glucose 205 H 08/19/20 05:16: POC Glucose 146 H 08/19/20 06:48: Sodium 132 L, Potassium 3.1 L, Chloride 102, Carbon Dioxide 27, Anion Gap 6.1, BUN 8 L D, Creatinine 0.60 L D, Estimated Creat Clear 56, Estimated GFR 132, Est GFR ( Amer) 160 D, Glucose 224 H, Calcium 7.3 L, Amylase 33 D, Lipase 37 I & O for Last 24 hours: Intake & Output 08/16/20 08/17/20 08/18/20 08/19/20 11:59 11:59 11:59 11:59 Intake Total 1999 0 / 0 2728 / 2728 2823 / 2823 Output Total 150 / 150 Balance 1999 0 / 0 2578 / 2578 2823 / 2823 Weight 129 lb 13.636 oz 128 lb 7 oz 127 lb 5 oz 129 lb 10.885 oz - Constitutional no acute distress - *Routine HEENT Exam Head: Present: normocephalic Eye: Present: PERRL ENT: Present: mucous membranes moist - *Routine Neck Exam Present: supple. Absent: lymphadenopathy - *Routine Respiratory Exam Present: CTA bilaterally - *Routine Cardiovascular Exam Present: RRR - *Routine Abdominal Exam Present: soft, normoactive bowel sounds. Absent: tenderness - *Routine Extremities Exam Absent: cyanosis, clubbing, edema - *Routine Skin Exam Present: warm. Absent: rash - *Routine Neurological Exam Present: alert - Routine Psychiatric Exam Present: normal affect Assessment and Plan (1) Alcohol use disorder Status: Acute Category: Medical (2) Pancreatitis Status: Acute Qualifiers: Chronicity: acute Pancreatitis type: alcohol induced Acute pancreatitis complication: unspecified Qualified Code(s): K85.20 - Alcohol induced acute pancreatitis without necrosis or infection Category: Medical Code(s): K85.90 - Acute pancreatitis without necrosis or infection, unspecified - Assessment and plan all Dx Assessment and Plan for all problems:: rounded with dr britt all order per dr britt ct abd/pelvis labs
[2020-08-19 10:23] LABS: Ammonia 25 umol/L (9-30)
[2020-08-19 11:32] LABS: POC Glucose,Bedside 173 (70-110)
--- NOTE | 2020-08-19 12:23 | CT_ITS ---
PROCEDURE INFORMATION: Exam: CT Abdomen And Pelvis Without And With Contrast Exam date and time: 08/19/2020 12:23 PM Age: 70 years old Clinical indication: Abdominal pain; Generalized; Patient HX: Extremely confused patient who would not hold still for exam. Very restless and uncooperative. ; Additional info: Poss ilius TECHNIQUE: Imaging protocol: Computed tomography of the abdomen and pelvis without and with contrast. Radiation optimization: All CT scans at this facility use at least one of these dose optimization techniques: automated exposure control; mA and/or kV adjustment per patient size (includes targeted exams where dose is matched to clinical indication); or iterative reconstruction. Contrast material: ISOVUE 370; Contrast volume: 75 ml; Contrast route: INTRAVENOUS (IV); Other contrast: Oral, gastrograffin; COMPARISON: CR XR ACUTE ABDOMEN SERIES 08/18/2020 9:34 AM FINDINGS: Lungs: Atelectasis in the posterior and lower lungs. No focal consolidation, as visualized. Pleural spaces: Small bilateral layering pleural effusions. Heart: Upper normal cardiac size. Multiple coronary artery calcifications. Trace pericardial effusion. Liver: The liver is normal. Gallbladder and bile ducts: Distended gallbladder. No calcified stones. No biliary dilatation. Pancreas: Findings suggest acute pancreatitis. Pancreas is heterogeneous with surrounding edema/infiltrative changes and retroperitoneal fluid. No discrete mass is seen, but small lesions could be obscured. There is a cystic collection indenting the posterior wall of the stomach which is probably loculated pseudocyst, approximately 7 x 5.5 x 4.2 cm diameter, axial series 3, image 35, coronal series 601, image 36, with a tail of fluid extending inferiorly and medially from this cyst to the pancreas seen on coronal series 601, image 27. Spleen: The spleen is normal. Adrenal glands: The adrenal glands are normal. Kidneys and ureters: Bilateral perinephric soft tissue stranding. Tiny hyperdense lesions in the left renal cortex of 1.3 and 0.9 mm, series 3, image 55 and 60, which are probably hemorrhagic cysts. No hydronephrosis, hydroureter, or obstructing calcified ureteral stone. Stomach and bowel: There is no evidence of intestinal perforation or obstruction. Small intestinal loops distended up to approximately 3 cm with air-fluid levels, but no significant dilatation or mucosal thickening. No acute findings in the large intestine. Likely 7 cm pseudocyst indenting the posterior gastric fundus as discussed in the pancreas section. Thickened appearance of the gastric antrum which may be artifact from contraction versus gastritis. There are no extraluminal gas bubbles to suggest gastric perforation. Appendix: Structure believed to be the appendix is swollen to 1.4 cm diameter containing fluid, and tiny calcification at the tip of this which could be an appendicolith, see coronal series 601, images 29-34. There is surrounding fluid, which could be due to acute appendicitis or the generalized ascites fluid. Appendix measures up to 1.3 cm coronal series 604, images 39-44 with slightly hyperenhancing wall. Note that the adjacent cecum is opacified with oral contrast material, but there is no contrast extending into the appendix lumen. Intraperitoneal space: Mild low-density free fluid/ascites in the abdomen and pelvis. Loculated left upper quadrant pseudocyst as discussed in the pancreas section. No definite abscess collection. No extraluminal gas bubbles or loraine pneumoperitoneum. Vasculature: The vasculature demonstrates scattered mild atherosclerotic calcification. No portal ve
[2020-08-19 13:59] LABS: Basophils % 0.2 % (0.1-2.0); Eosinophils # 0.1 K/mm3 (0.0-0.4); Eosinophils % 0.9 % (0.1-12.0); Hematocrit 30.8 % (42.0-52.0); Hemoglobin 10.7 g/dL (14.1-18.0); Lymphocytes % 13.5 % (10-50); Mean Corpuscular HGB Conc 34.7 g/dL (31.8-35.4); Mean Corpuscular Hemoglobin 31.3 pg (27.0-31.2); Mean Corpuscular Volume 90.3 fl (80-94); Mean Platelet Volume 9.7 fl (7.4-10.4); Monocytes # 0.6 K/mm3 (0.1-1.0); Monocytes % 8.3 % (1.7-9.3); Neutrophils # 5.5 K/mm3 (1.8-7.8); Platelet Count 68 K/mm3 (142-424); Red Blood Count 3.41 M/mm3 (4.60-6.20); Red Cell Distribution Width 14.3 % (11.5-17.5); White Blood Count 7.1 K/mm3 (4.8-10.8)
[2020-08-19 17:21] LABS: POC Glucose,Bedside 183 (70-110)
--- NOTE | 2020-08-19 19:41 | PC.NURSE ---
THIS RN RECEIVED REPORT FROM DR. MOJICA RADIOLOGIST IN REGARDS TO PATIENT'S CT RESULTS. THIS RN PAGED DR. FLORES WHO WAS FLOOR ATTENDANT FOR DR. FERNANDEZ. PER DR. FLORES, CALL DR. FERNANDEZ AND REPORT FINDINGS DUE TO MD WORKING IN THE ED. DR. RESENDIZ IS ON THE FLOOR, THIS RN REPORT INFORMATION TO DR. RESENDIZ. PER , DO NOT CALL DR. FERNANDEZ, HE WILL TAKE CARE OF IT.
--- NOTE | 2020-08-19 20:12 | PC.NURSE ---
PATIENT IS ALERT TO SELF. LUNGS ARE DIMINISHED, PULSES ARE EQUAL. PATIENT HAS CONTINUED TO TRY TO GET OUT OF BED THRU THIS RN SHIFT. PATIENT HAS HAD SEVERAL INCONTINENT BOWL MOVEMENTS THRU THIS RN SHIFT. PATIENT WAS RESTLESS THRU THIS RN SHIFT.
[2020-08-19 21:04] LABS: POC Glucose,Bedside 154 (70-110)
[2020-08-20] VITALS (11 sets, daily range): BP systolic 148–177; BP diastolic 63–84; PULSE 70–100; RESP 16–18; TEMP 36.6–36.9; O2SAT 17–99; BMI 46.0; BMI 20.8
[2020-08-20 05:27] LABS: POC Glucose,Bedside 128 (70-110)
--- NOTE | 2020-08-20 05:48 | PC.NURSE ---
at beginning of shift, pt was restless and trying to get up, pt did begin to relax and has rested well t/o the night, telemetry shows NSR, remains on room air, has been incontinent of bowel and bladder this shift
[2020-08-20 07:29] LABS: Chloride 100 mmol/L (98-107); Sodium 133 mmol/L (136-145)
[2020-08-20 07:32] LABS: Anion Gap 6.6 mEq/L (5-15); Blood Urea Nitrogen 5 mg/dl (9-20); Carbon Dioxide 29 mmol/L (22.0-30.0); Creatinine Clearance Estimated 60 mL/min (50-200); Estimated Glomerular Filt Rate 163 ml/min (>60); GFR (African American) 198 ML/MIN (>60); Lipase 16 U/L (23-300)
[2020-08-20 07:33] LABS: Calcium 7.3 mg/dl (8.4-10.2); Glucose 127 mg/dl (74-100)
[2020-08-20 07:34] LABS: Amylase < 30 U/L (30-110)
[2020-08-20 07:37] LABS: Potassium 2.6 mmoL/L (3.5-5.1)
--- NOTE | 2020-08-20 08:38 | HMH.ACPN2 ---
Internal Medicine - PN: Subj *Date: 08/20/20 *Time: 11:15 Interval history: 70-year-old male patient lying in bed resting quietly, non-Yi speaking. Through computer artist patient reports no abdominal pain, no chest pain, no shortness of breath, or any other complaints at present. Able to lift legs up off bed and denies any needs at present. Potassium 2.6 will replenish, and check sed rate, CRP, and thiamine levels. We will also CT Thoracic and Lumbar spine due to inability to walk Exam Vital signs and Labs for Last 24 Hours: Temp Pulse Resp BP Pulse Ox 98.5 F 80 18 153/84 H 99 08/20/20 00:00 08/20/20 04:00 08/20/20 00:00 08/20/20 00:00 08/20/20 00:00 Laboratory Results - last 24 hr 08/19/20 09:55: Ammonia 25 08/19/20 11:23: POC Glucose 173 H 08/19/20 13:50: WBC 7.1, RBC 3.41 L, Hgb 10.7 L, Hct 30.8 L, MCV 90.3, MCH 31.3 H, MCHC 34.7, RDW 14.3, Plt Count 68 L, MPV 9.7, Neut % (Auto) 77.0, Lymph % (Auto) 13.5, [place] % (Auto) 8.3, Eos % (Auto) 0.9, Baso % (Auto) 0.2, Neut # (Auto) 5.5, Lymph # (Auto) 1.0, [place] # (Auto) 0.6, Eos # (Auto) 0.1, Baso # (Auto) 0.0 08/19/20 17:13: POC Glucose 183 H 08/19/20 20:57: POC Glucose 154 H 08/20/20 05:09: POC Glucose 128 H 08/20/20 06:39: Sodium 133 L, Potassium 2.6 L*, Chloride 100, Carbon Dioxide 29, Anion Gap 6.6, BUN 5 L D, Creatinine 0.50 L, Estimated Creat Clear 60, Estimated GFR 163, Est GFR ( Amer) 198 D, Glucose 127 H D, Calcium 7.3 L, Amylase < 30 L, Lipase 16 L I & O for Last 24 hours: Intake & Output 08/17/20 08/18/20 08/19/20 08/20/20 23:59 23:59 23:59 23:59 Intake Total 1326 / 1446 2931 / 2931 1774 / 1774 808 / 808 Output Total 150 / 150 Balance 1176 / 1296 2931 / 2931 1774 / 1774 808 / 808 Weight 128 lb 7 oz 127 lb 13.89 oz 129 lb 10.885 oz 133 lb - Constitutional no acute distress, chronically ill appearing - *Routine HEENT Exam Head: Present: normocephalic Eye: Present: EOMI ENT: Present: mucous membranes moist - *Routine Neck Exam Present: trachea midline. Absent: tracheal deviation - *Routine Respiratory Exam Present: CTA bilaterally. Absent: accessory muscle use - *Routine Cardiovascular Exam Present: RRR - *Routine Abdominal Exam Present: soft, normoactive bowel sounds. Absent: tenderness, guarding, rigid - *Routine Extremities Exam Present: full ROM, pulses intact. Absent: cyanosis, clubbing, calf tenderness - *Routine Skin Exam Present: intact, cyanosis, dry, warm. Absent: erythema - *Routine Neurological Exam Present: alert. Absent: motor deficit, pronator drift - Routine Psychiatric Exam Present: unable to assess. Absent: auditory hallucinations, visual hallucinations Assessment and Plan (1) Alcohol use disorder Status: Acute Category: Medical (2) Pancreatitis Status: Acute Qualifiers: Chronicity: acute Pancreatitis type: alcohol induced Acute pancreatitis complication: unspecified Qualified Code(s): K85.20 - Alcohol induced acute pancreatitis without necrosis or infection Category: Medical Code(s): K85.90 - Acute pancreatitis without necrosis or infection, unspecified (3) Pancreatic pseudocyst Status: Acute Category: Medical Code(s): K86.3 - Pseudocyst of pancreas - Assessment and plan all Dx Assessment and Plan for all problems:: Rounded with Dr. Short, all orders per Dr. Short: 1. Will CT thoracic and lumbar spine 2. Sed rate, CRP, thiamine levels 3. We will consult surgery for abnormal abdominal CT 4. Consult GI for organizing 7 cm Pancreatic pseudocyst
[2020-08-20 11:11] LABS: Chloride 101 mmol/L (98-107); Sodium 136 mmol/L (136-145)
[2020-08-20 11:12] LABS: Potassium 3.2 mmoL/L (3.5-5.1)
[2020-08-20 11:14] LABS: Alanine Aminotransferase 42 U/L (12-78); Albumin Level 3.2 g/dl (3.5-5.0); Alkaline Phosphatase 126 U/L (38-126); Anion Gap 8.2 mEq/L (5-15); Aspartate Amino Transferase 49 U/L (17-59); Bilirubin,Total 1.2 mg/dl (0.2-1.3); Blood Urea Nitrogen 7 mg/dl (9-20); Calcium 7.6 mg/dl (8.4-10.2); Carbon Dioxide 30 mmol/L (22.0-30.0); Creatinine Clearance Estimated 57 mL/min (50-200); Estimated Glomerular Filt Rate 163 ml/min (>60); GFR (African American) 198 ML/MIN (>60); Globulin 3.3 g/dL (1.3-3.2); Glucose 121 mg/dl (74-100); Total Protein,Serum 6.5 g/dl (6.3-8.2)
--- NOTE | 2020-08-20 11:20 | CT_ITS ---
PROCEDURE INFORMATION: Exam: CT Thoracic Spine Without Contrast Exam date and time: 08/20/2020 11:20 AM Age: 70 years old Clinical indication: Weakness; Additional info: Unable to walk TECHNIQUE: Imaging protocol: Computed tomography images of the thoracic spine without contrast. Radiation optimization: All CT scans at this facility use at least one of these dose optimization techniques: automated exposure control; mA and/or kV adjustment per patient size (includes targeted exams where dose is matched to clinical indication); or iterative reconstruction. COMPARISON: No relevant prior studies available. FINDINGS: Vertebrae: There is no fracture of the thoracic spine. Thoracic vertebra maintain their height and alignment. There is no fracture of the posterior elements. There is no focal osseous lesion. T1-T2: Facet hypertrophy with mild bilateral foraminal stenosis. No central stenosis. T2-T3: Facet hypertrophy with mild bilateral foraminal stenosis. T3-T4: No significant disc protrusion. No severe spinal canal stenosis. No significant neural foraminal narrowing. T4-T5: No significant disc protrusion. No severe spinal canal stenosis. No significant neural foraminal narrowing. T5-T6: No significant disc protrusion. No severe spinal canal stenosis. No significant neural foraminal narrowing. T6-T7: No significant disc protrusion. No severe spinal canal stenosis. No significant neural foraminal narrowing. T7-T8: No significant disc protrusion. No severe spinal canal stenosis. No significant neural foraminal narrowing. T8-T9: No significant disc protrusion. No severe spinal canal stenosis. No significant neural foraminal narrowing. T9-T10: No significant disc protrusion. No severe spinal canal stenosis. No significant neural foraminal narrowing. T10-T11: No significant disc protrusion. No severe spinal canal stenosis. No significant neural foraminal narrowing. T11-T12: No significant disc protrusion. No severe spinal canal stenosis. No significant neural foraminal narrowing. T12-L1: No significant disc protrusion. No severe spinal canal stenosis. No significant neural foraminal narrowing. Pleural space: Bilateral pleural effusions are noted. Pancreas: Abdominal ascites previously seen on CT. Pancreatic edema also better seen on prior abdominal CT IMPRESSION: 1. No fracture of the thoracic spine. 2. No central spinal stenosis.
--- NOTE | 2020-08-20 11:20 | CT_ITS ---
PROCEDURE INFORMATION: Exam: CT Lumbar Spine Without Contrast Exam date and time: 08/20/2020 11:20 AM Age: 70 years old Clinical indication: Weakness; Additional info: Unable to walk TECHNIQUE: Imaging protocol: Computed tomography images of the lumbar spine without contrast. Radiation optimization: All CT scans at this facility use at least one of these dose optimization techniques: automated exposure control; mA and/or kV adjustment per patient size (includes targeted exams where dose is matched to clinical indication); or iterative reconstruction. COMPARISON: No relevant prior studies available. FINDINGS: Vertebrae: There is no fracture of the lumbar spine. Lumbar vertebra maintain their height. There is no fracture of the posterior elements. T12-L1: No disc bulge. No central or foraminal stenosis. L1-L2: No disc bulge. No central or foraminal stenosis. L2-L3: No disc bulge. There is mild facet hypertrophy. No central or foraminal stenosis. L3-L4: Mild disc bulge. Facet and ligament hypertrophy. There is [id number] central stenosis. There is mild right and moderate left foraminal stenosis. L4-L5: Disc bulge and facet and ligament hypertrophy resulting in moderate central spinal stenosis. There is [id number] right and moderate left foraminal stenosis. L5-S1: Mild disc bulge. There is facet arthropathy with moderate bilateral foraminal stenosis. The more focal right foraminal exacerbating Other bones/joints: There is an old fracture of the right 11th posterior rib near the costovertebral junction. No acute fracture. Intraperitoneal space: Ascites noted in the pelvis previously reported on CT of abdomen and pelvis. Soft tissues: Unremarkable. IMPRESSION: 1. Fracture. 2. Multilevel disc disease and facet and ligament hypertrophy resulting in central and foraminal stenosis as detailed above
--- NOTE | 2020-08-20 11:48 | HMH.GSCON ---
*Admission Date: 08/15/20 *Reason for consult:: Abnormal CT scan evaluate gallbladder and appendix *History of present illness: Patient is a 70-year-old [id number] male who admits to daily alcohol use. He had presented to the emergency department on 08/15/2020 with epigastric and chest pain. ER evaluation revealed elevated lipase. He did undergo CTA of the chest to rule out pulmonary embolism which revealed findings of partially visualized severe acute pancreatitis. He was admitted at that time (08/15/20) for inpatient management. According to the record he has never had any pain since admission. He had a CT scan of the abdomen ordered yesterday. This reveals findings of severe acute phlegmonous pancreatitis with retroperitoneal fluid and developing pseudocyst as well as mild ascites, distended gallbladder, and structure felt to likely be the appendix measuring 13 mm. Patient has still reported no abdominal pain according to the record. White blood cell count is now normalized. Pancreatic enzymes have normalized. Surgical consultation was obtained due to the findings of distended gallbladder and presumed distended appendix on his CT scan done yesterday. Review of Systems - Review of Systems Review of systems:: unable to obtain - *Neurologic Denies dizziness, Denies headache(s), Denies numbness [facility] History I have reviewed the patient's past medical history: Yes Medical History: Reports:: Coronary Artery Disease, Hypertension *Have you ever received a pneumonia vaccine?: No *Have you received a flu vaccine this season?: No - *Social History Smoking Status: Unknown if ever smoked Alcohol Intake: current *Occupational Status:: employed *Travel in the last 8 weeks: Outside the [facility] Family Hx:: Unable to obtain Meds Home Medications Medication Instructions Recorded Confirmed Type No Known Home Medications 08/15/20 08/16/20 History Allergies Allergy/AdvReac Type Severity Reaction Status Date / Time No Known Allergies Allergy Verified 08/15/20 19:06 Exam Vital signs and Labs for Last 24 Hours: Temp Pulse Resp BP Pulse Ox 97.9 F 87 16 148/81 H 96 08/20/20 11:24 08/20/20 11:24 08/20/20 11:24 08/20/20 11:24 08/20/20 11:24 Laboratory Results - last 24 hr 08/19/20 13:50: WBC 7.1, RBC 3.41 L, Hgb 10.7 L, Hct 30.8 L, MCV 90.3, MCH 31.3 H, MCHC 34.7, RDW 14.3, Plt Count 68 L, MPV 9.7, Neut % (Auto) 77.0, Lymph % (Auto) 13.5, [place] % (Auto) 8.3, Eos % (Auto) 0.9, Baso % (Auto) 0.2, Neut # (Auto) 5.5, Lymph # (Auto) 1.0, [place] # (Auto) 0.6, Eos # (Auto) 0.1, Baso # (Auto) 0.0 08/19/20 17:13: POC Glucose 183 H 08/19/20 20:57: POC Glucose 154 H 08/20/20 05:09: POC Glucose 128 H 08/20/20 06:39: Sodium 133 L, Potassium 2.6 L*, Chloride 100, Carbon Dioxide 29, Anion Gap 6.6, BUN 5 L D, Creatinine 0.50 L, Estimated Creat Clear 60, Estimated GFR 163, Est GFR ( Amer) 198 D, Glucose 127 H D, Calcium 7.3 L, Amylase < 30 L, Lipase 16 L 08/20/20 10:49: Sodium 136, Potassium 3.2 L D, Chloride 101, Carbon Dioxide 30, Anion Gap 8.2, BUN 7 L D, Creatinine 0.50 L, Estimated Creat Clear 57, Estimated GFR 163, Est GFR ( Amer) 198, Glucose 121 H, Calcium 7.6 L, Total Bilirubin 1.2, AST 49, ALT 42, Alkaline Phosphatase 126, Total Protein 6.5, Albumin 3.2 L, Globulin 3.3 H, Albumin/Globulin Ratio 1.0 L I & O for Last 24 hours: Intake & Output 08/17/20 08/18/20 08/19/20 08/20/20 11:59 11:59 11:59 11:59 Intake Total 0 / 0 2728 / 2728 2823 / 2823 1288 / 1288 Output Total 150 / 150 Balance 0 / 0 2578 / 2578 2823 / 2823 1288 / 1288 Weight 128 lb 7 oz 127 lb 5 oz 129 lb 10.885 oz 133 lb Narrative: Patient is resting comfortably. Awakens to verbal stimuli. No acute distress. Abdomen somewhat distended but nontender. - *Routine Abdominal Exam Present: soft, distended. Absent: tenderness, rebound, guarding Results - Labs 08/19/20 13:50 08/20/20 10
--- NOTE | 2020-08-20 13:33 | P.CONS_ITS ---
Gastroenterology Consult Consult:: Gastroenterology Consultation Date of Service-August 20, 2020 History of Present Illness: Mr. Alejandra is a 70-year-old gentleman who presented with chest pain that started on August 14, 2020. He was having burning and tightness in the midsternal area that did not radiate. He does admit to 6 beers daily. His initial lab work from 08/15 showed serum alcohol level of 63 and lipase level of 2139. His AST 99 and alkaline phosphatase 151 were mildly elevated. His ALT level was 70. On 08/16 his amylase and lipase declined to 149 and 753 respectively. His total bilirubin was 2.2 (08/16/2020). I had these repeated and total bilirubin today is 1.2 (normal). The patient's CAT scan of the abdomen and pelvis on 08/19 showed acute phlegmonous pancreatitis with edematous ill-defined retroperitoneal fluid and an organizing 7 cm pancreatic pseudocyst indenting the gastric fundus. The patient does not speak Mongolian. He was seen by general surgery. He does not have gallstones or gallstone pancreatitis. The patient presently reports no abdominal pain. He reports no tobacco use and states that he is quitting alcohol. He does report some throat pain. Past Medical History: 1. CASHD 2. Hypertension Past Surgical History: No prior surgeries Medications: None ALLERGIES: None Social History: Alcohol use outlined above, no known tobacco Family History: Noncontributory Review of Systems: See chart Physical Examination: Gen.: The patient is a well-developed well-nourished individual in no acute dist ress HEENT: Normocephalic/atraumatic extraocular movements are intact anicteric Neck: Supple no lymphadenopathy Chest: Clear to auscultation Cardiovascular: Regular rate and rhythm Abdomen: Normoactive bowel sounds soft, nontender, nondistended, no hepatosplenomegaly Extremities: No edema Labs: See above Radiology: See above Impression/Plan: 1. Acute on chronic alcoholic pancreatitis. The patient does have a developing pancreatic pseudocyst (7 cm) which is at least partially walled off and adjacent to the gastric fundus. Most importantly, the patient needs to achieve alcohol rehabilitation. His pancreatic chemistries have returned to normal and I would encourage early nutrition and oral feeding (low-fat diet) with a pancreatic digestive enzyme supplement. ERCP is not presently indicated. I do feel that he will need follow-up of the large pseudocyst. After 6 to 12-week repeat imaging (CAT scan) if there is no change and the pseudocyst continues to be walled off, he may need ERCP with stenting and drainage through the pancreatic duct (approximately two thirds of pseudocyst communicated with the pancreatic duct) versus endoscopic cyst gastrostomy. This is not performed by me presently (i.e. cyst gastrostomy) and I would recommend referral to a tertiary center that can perform advanced pancreatic intervention after the patient is discharged. Presently, he is much clinically improved and would focus on alcohol rehabilitation and nutrition. There is no evidence of necrosis or infected pseudocyst. Pseudocysts occur in the setting of both acute and chronic pancreatitis. They are encapsulated mature fluid collections that occur outside of the pancreas that have a well-defined wall with minimal or no necrosis. They do often occur in persons with chronic pancreatitis that have an acute exacerbation with progressive pancreatic ductal obstruction. I did speak with the nurse and patient. Advance diet to low-fat with Creon 2 to 3 capsules with meals. I would recommend referral to the advanced pancreatic endoscopy GI at [facility].
--- NOTE | 2020-08-20 14:27 | DIET.NUTRFU ---
Pt had GI consult today and diet advanced to low fat with Creon enzymes at meals. He tolerated full liquids for 4 meals, however only ate about 25% of each meal. K is low today and being supplemented. Thiamin levels ordered as well. Pt continues to require total assistance feeding, please encourage/cue at meal times. Daily low fat protein supplement on diet order, pt may have additional Breeze/Boost (not ensure) by request/nursing offer. 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 Encouraged them to reach out with any questions/concerns post dc.
[2020-08-20 16:02] LABS: Chloride 100 mmol/L (98-107); Potassium 3.3 mmoL/L (3.5-5.1); Sodium 134 mmol/L (136-145)
[2020-08-20 16:05] LABS: Anion Gap 9.3 mEq/L (5-15); Blood Urea Nitrogen 7 mg/dl (9-20); Calcium 7.5 mg/dl (8.4-10.2); Carbon Dioxide 28 mmol/L (22.0-30.0); Creatinine Clearance Estimated 57 mL/min (50-200); Estimated Glomerular Filt Rate 163 ml/min (>60); GFR (African American) 198 ML/MIN (>60); Glucose 286 mg/dl (74-100)
[2020-08-20 17:02] LABS: POC Glucose,Bedside 111 (70-110)
--- NOTE | 2020-08-20 17:25 | PC.NURSE ---
Pt has been pleasant and cooperative this shift. A&O X4. Pt has complained of abdominal pain X1 and received Morphine per MAR with favorable results. Pt is on room air with sats. >90%. Lungs CTA. No edema noted. Skin is C/D/I. Pt ambulates with assistance X1. Pt worked with PT today and sat up in the recliner for a few hours. Pt is incontinent and brief is in place. Urine is clear and yellow. 3 large, brown, loose stools thus far this shift. Telemetry reveals NSR/ST. FSBS results have been 111 and 311. 20 G peripheral IV in the LT forearm is patent and infusing NS @ 100 ML/HR. 20 G peripheral IV in the LT upper arm is patent and SL. Bed safety alarm is in place. VSS. Call light within reach. Will continue to monitor.
[2020-08-20 17:30] LABS: POC Glucose,Bedside 311 (70-110)
[2020-08-20 19:52] LABS: POC Glucose,Bedside 292 (70-110)
--- NOTE | 2020-08-20 22:01 | PC.NURSE ---
Contacted Language Services to inquire where patient was hurting. By Scientific Process Operator Sriram # [id number] he stated it hurt in the abdomen. Administered 4 mg IV morphine. Will continue to monitor.
[2020-08-21] VITALS (8 sets, daily range): BP systolic 128–143; BP diastolic 62–80; PULSE 80–100; RESP 17–18; TEMP 36.4–36.8; O2SAT 96–98
--- NOTE | 2020-08-21 03:23 | PC.NURSE ---
Pt oriented to self and confused. Patient has been very restless while awake. Patient slept for about 3 hours. Patient incontinent of bowel times 2. Patient was administered pain medication x 1. Difficult to keep patient in bed. Will continue to monitor Q 15 as per [place] protocol and for any acute changes.
--- NOTE | 2020-08-21 05:31 | PC.NURSE ---
Weight not obtained because bed is not working.
[2020-08-21 07:04] LABS: Chloride 98 mmol/L (98-107); Sodium 134 mmol/L (136-145)
[2020-08-21 07:07] LABS: Blood Urea Nitrogen 4 mg/dl (9-20); Calcium 7.4 mg/dl (8.4-10.2); Carbon Dioxide 32 mmol/L (22.0-30.0); Creatinine Clearance Estimated 57 mL/min (50-200); Estimated Glomerular Filt Rate 163 ml/min (>60); GFR (African American) 198 ML/MIN (>60); Glucose 177 mg/dl (74-100); Lipase 14 U/L (23-300)
[2020-08-21 07:21] LABS: Amylase < 30 U/L (30-110)
--- NOTE | 2020-08-21 08:47 | HMH.ACPN2 ---
Internal Medicine - PN: Subj *Date: 08/22/20 *Time: 07:28 Interval history: improved and is ambulating - gi consult noted Exam Vital signs and Labs for Last 24 Hours: Temp Pulse Resp BP Pulse Ox 98.3 F 90 18 143/69 H 96 08/21/20 08:00 08/21/20 08:00 08/21/20 08:00 08/21/20 08:00 08/21/20 08:00 Laboratory Results - last 24 hr 08/20/20 10:49: Sodium 136, Potassium 3.2 L D, Chloride 101, Carbon Dioxide 30, Anion Gap 8.2, BUN 7 L D, Creatinine 0.50 L, Estimated Creat Clear 57, Estimated GFR 163, Est GFR ( Amer) 198, Glucose 121 H, Calcium 7.6 L, Total Bilirubin 1.2, AST 49, ALT 42, Alkaline Phosphatase 126, Total Protein 6.5, Albumin 3.2 L, Globulin 3.3 H, Albumin/Globulin Ratio 1.0 L 08/20/20 11:28: POC Glucose 111 H 08/20/20 15:48: Sodium 134 L, Potassium 3.3 L, Chloride 100, Carbon Dioxide 28, Anion Gap 9.3, BUN 7 L, Creatinine 0.50 L, Estimated Creat Clear 57, Estimated GFR 163, Est GFR ( Amer) 198, Glucose 286 H D, Calcium 7.5 L 08/20/20 17:18: POC Glucose 311 H* 08/20/20 19:37: POC Glucose 292 H 08/21/20 06:30: Sodium 134 L, Potassium 3.0 L, Chloride 98, Carbon Dioxide 32 H, Anion Gap 7.0, BUN 4 L D, Creatinine 0.50 L, Estimated Creat Clear 57, Estimated GFR 163, Est GFR ( Amer) 198, Glucose 177 H D, Calcium 7.4 L, Amylase < 30 L, Lipase 14 L I & O for Last 24 hours: Intake & Output 08/18/20 08/19/20 08/20/20 08/21/20 11:59 11:59 11:59 11:59 Intake Total 2728 / 2728 2823 / 2823 1288 / 1288 4128 / 4128 Output Total 150 / 150 Balance 2578 / 2578 2823 / 2823 1288 / 1288 4128 / 4128 Weight 127 lb 5 oz 129 lb 10.885 oz 133 lb - Constitutional no acute distress - *Routine HEENT Exam Head: Present: normocephalic Eye: Present: EOMI, PERRL ENT: Present: mucous membranes dry - *Routine Neck Exam Present: supple - *Routine Respiratory Exam Present: CTA bilaterally - *Routine Cardiovascular Exam Present: RRR - *Routine Abdominal Exam Present: soft - *Routine Extremities Exam Absent: calf tenderness - *Routine Skin Exam Present: intact - *Routine Neurological Exam Present: alert, CN II-XII intact - Routine Psychiatric Exam Present: normal affect Assessment and Plan (1) Alcohol use disorder Status: Acute Category: Medical (2) Pancreatitis Status: Acute Qualifiers: Chronicity: acute Pancreatitis type: alcohol induced Acute pancreatitis complication: unspecified Qualified Code(s): K85.20 - Alcohol induced acute pancreatitis without necrosis or infection Category: Medical Code(s): K85.90 - Acute pancreatitis without necrosis or infection, unspecified (3) Pancreatic pseudocyst Status: Acute Category: Medical Code(s): K86.3 - Pseudocyst of pancreas
[2020-08-21 11:22] LABS: POC Glucose,Bedside 177 (70-110)
[2020-08-21 11:22] LABS: POC Glucose,Bedside 252 (70-110)
--- NOTE | 2020-08-21 13:38 | PC.NURSE ---
PATIENT HAD QUESTIONS, THIS RN USED TABLET LNG-LN [id number] TO ASSIST PATIENT. PATIENT INQUIRED WHEN HE WILL BE GOING HOME. THIS RN INFORMED PATIENT THAT HE IS VERY ILL AND WILL NEED TO GET BETTER, PATIENT STATED, I AM BETTER, I NEED TO WORK THIS RN STATED THAT HIS LABS ARE SHOWING THAT HE IS NOT BETTER YET AND HE WILL NEED TO DISCUSS WITH MD IN THE MORNING. PATIENT AGREED.
--- NOTE | 2020-08-21 17:04 | PC.NURSE ---
PATIENT IS A&O X2, LUNGS ARE CLEAR, PULSES ARE EQUAL. PATIENT HAS AMBULATED 2X DURING THIS RN SHIFT. PATIENT REFUSED DINNER, STATING IT IS TOO MUCH. NO NEW CONCERNS AT THIS TIME.
[2020-08-22] VITALS (7 sets, daily range): BP systolic 133–158; BP diastolic 58–84; PULSE 80–93; RESP 17–18; TEMP 36.6–36.9; O2SAT 95–98; BMI 21.3
--- NOTE | 2020-08-22 05:49 | PC.NURSE ---
Patient oriented times 2. Patient mentation improving from the previous shift. Patient administered Cerax 15 mg. Patient did not require pain medication this shift. Patient ambulation improving and requested numerous times to go to bathroom. Patient only had 1 incontinent brief. Will continue to monitor for any acute changes.
[2020-08-22 07:58] LABS: Chloride 98 mmol/L (98-107); Sodium 132 mmol/L (136-145)
[2020-08-22 08:01] LABS: Anion Gap 4.8 mEq/L (5-15); Blood Urea Nitrogen 3 mg/dl (9-20); Carbon Dioxide 32 mmol/L (22.0-30.0); Creatinine Clearance Estimated 58 mL/min (50-200); Estimated Glomerular Filt Rate 163 ml/min (>60); GFR (African American) 198 ML/MIN (>60); Glucose 176 mg/dl (74-100); Lipase 10 U/L (23-300)
[2020-08-22 08:02] LABS: Calcium 7.4 mg/dl (8.4-10.2)
[2020-08-22 08:54] LABS: Amylase < 30 U/L (30-110); Potassium 2.8 mmoL/L (3.5-5.1)
--- NOTE | 2020-08-22 09:37 | P.PN_ITS ---
Internal Medicine - PN: Subj *Date: 08/23/20 *Time: 07:10 Interval history: looks better today with no pain - has low potassium Exam Vital signs and Labs for Last 24 Hours: Temp Pulse Resp BP Pulse Ox 98.5 F 91 H 18 133/58 L 95 08/22/20 08:00 08/22/20 08:00 08/22/20 08:00 08/22/20 08:00 08/22/20 08:00 Laboratory Results - last 24 hr 08/21/20 04:59: POC Glucose 177 H 08/21/20 11:03: POC Glucose 252 H 08/22/20 06:52: Sodium 132 L, Potassium 2.8 L*, Chloride 98, Carbon Dioxide 32 H , Anion Gap 4.8 L, BUN 3 L, Creatinine 0.50 L, Estimated Creat Clear 58, Estimated GFR 163, Est GFR ( Amer) 198, Glucose 176 H, Calcium 7.4 L, Amylase < 30 L, Lipase 10 L I & O for Last 24 hours: Intake & Output 08/19/20 08/20/20 08/21/20 08/22/20 11:59 11:59 11:59 11:59 Intake Total 2823 / 2823 1288 / 1288 4248 / 4248 2834 / 2834 Balance 2823 / 2823 1288 / 1288 4248 / 4248 2834 / 2834 Weight 129 lb 10.885 oz 133 lb 136 lb - Constitutional no acute distress - *Routine HEENT Exam Head: Present: normocephalic Eye: Present: EOMI, PERRL ENT: Present: mucous membranes dry - *Routine Neck Exam Present: supple - *Routine Respiratory Exam Present: CTA bilaterally - *Routine Cardiovascular Exam Present: RRR, murmur - *Routine Abdominal Exam Present: soft, distended - *Routine Extremities Exam Absent: calf tenderness - *Routine Skin Exam Present: intact - *Routine Neurological Exam Present: alert - Routine Psychiatric Exam Present: unable to assess Assessment and Plan (1) Alcohol use disorder Status: Acute Category: Medical (2) Pancreatitis Status: Acute Qualifiers: Chronicity: acute Pancreatitis type: alcohol induced Acute pancreatitis complication: unspecified Qualified Code(s): K85.20 - Alcohol induced acute pancreatitis without necrosis or infection Category: Medical Code(s): K85.90 - Acute pancreatitis without necrosis or infection, unspecified (3) Pancreatic pseudocyst Status: Acute Category: Medical Code(s): K86.3 - Pseudocyst of pancreas
[2020-08-22 09:45] LABS: Basophils % 0.2 % (0.1-2.0); Eosinophils # 0.2 K/mm3 (0.0-0.4); Eosinophils % 2.2 % (0.1-12.0); Hematocrit 29.5 % (42.0-52.0); Lymphocytes # 0.6 K/mm3 (0.7-4.5); Lymphocytes % 7.4 % (10-50); Mean Corpuscular HGB Conc 33.8 g/dL (31.8-35.4); Mean Corpuscular Hemoglobin 31.7 pg (27.0-31.2); Mean Corpuscular Volume 93.6 fl (80-94); Mean Platelet Volume 8.3 fl (7.4-10.4); Monocytes # 0.5 K/mm3 (0.1-1.0); Monocytes % 5.6 % (1.7-9.3); Neutrophils % 84.7 % (37.0-80.0); Platelet Count 240 K/mm3 (142-424); Red Blood Count 3.15 M/mm3 (4.60-6.20); Red Cell Distribution Width 14.4 % (11.5-17.5); White Blood Count 8.3 K/mm3 (4.8-10.8)
[2020-08-22 10:09] LABS: Iron 19 ug/dL (49-181)
[2020-08-22 10:19] LABS: Total Iron Binding Capacity 173 ug/dL (261-462)
[2020-08-22 15:05] LABS: Occult Blood,Stool Negative (Negative)
--- NOTE | 2020-08-22 16:02 | PC.NURSE ---
Pt has rested some this shift. Pt has ambulated multiple times to the bathroom with assist x1. BM x1 and several unmeasured voids this shift. Stool sample collected and sent to lab. LS CTA x4. Pt has become more oriented this shift. Pt tolerating diet well. VSS. No c/o pain or nausea this shift. IV x2 to LUE patent and infusing w/o difficulty. Pt is cooperative with care. Bed alarm activated, will continue to monitor.
[2020-08-23] VITALS: BP 138/78; PULSE 78; PULSE 90; RESP 17; TEMP 36.6; O2SAT 97
--- NOTE | 2020-08-23 00:20 | PC.NURSE ---
Report received from Milka Gibson RN
[2020-08-23 04:00] VITALS: BP 144/72; PULSE 80; PULSE 84; RESP 17; TEMP 36.6; O2SAT 97
[2020-08-23 05:00] VITALS: BMI 21.3
--- NOTE | 2020-08-23 06:00 | PC.NURSE ---
No acute changes. Pt has slept at intervals this shift. Has not attempted to get OOB without assistance since this nurse assumed care of pt. VS remain stable.Medications administered per may. Safety measures in place. Will continue to monitor.
[2020-08-23 06:06] LABS: POC Glucose,Bedside 164 (70-110)
[2020-08-23 08:00] VITALS: BP 137/73; PULSE 72; PULSE 78; RESP 18; TEMP 36.6; O2SAT 97
--- NOTE | 2020-08-23 09:33 | HMH.DCSUM ---
General - General Admission date:: 08/15/20 Discharge date: 08/23/20 HPI HPI: 70-year-old male presented to the emergency department with chest pain. Pain started yesterday evening. It is described as a burning, tightness located near his sternum per er note. Does not radiate to the jaw, back, arm. Admits to daily alcohol use, about 6 beers. Denies whiskey. No history of coronary artery disease or hypertension. No tobacco use. No recent illness, fevers, chills, nausea, vomiting. No lower extremity swelling or palpitations. per dr note this am pt laying in bed opens eyes when spoken to and nods head when asked if abd hurts. pt admitted for monitoring of labs and iv fluids. Hospital Course Hospital Course: Laboratory Tests 08/15/20 08/15/20 08/15/20 19:06 19:06 19:06 WBC 18.8 H RBC 5.33 Hgb 16.3 Hct 49.1 MCV 92.1 MCH 30.6 MCHC 33.2 RDW 14.2 Plt Count 181 MPV 7.5 Neut % (Auto) 93.9 H Lymph % (Auto) 2.2 L [place] % (Auto) 3.4 Eos % (Auto) 0.3 Baso % (Auto) 0.2 Neut # (Auto) 17.7 H Lymph # (Auto) 0.4 L [place] # (Auto) 0.6 Eos # (Auto) 0.1 Baso # (Auto) 0.1 Total Counted 100 Neutrophils % (Manual) 95 H Band Neutrophils % 5.0 Lymphocytes % (Manual) Monocytes % (Manual) Eosinophils % (Manual) Basophils % (Manual) Platelet Estimate Normal RBC Morphology Normal Hypochromasia Microcytosis Rouleaux D-Dimer Sodium 141 Potassium 3.4 L Chloride 102 Carbon Dioxide 21 L Anion Gap 21.4 H BUN 12 Creatinine 0.70 Estimated Creat Clear 56 Estimated GFR 111 Est GFR ( Amer) 134 Glucose 146 H POC Glucose Calcium 8.4 Phosphorus Magnesium Iron TIBC Iron Saturation Total Bilirubin 1.1 AST 99 H ALT 70 Alkaline Phosphatase 151 H Ammonia Troponin I 0.02 Total Protein 8.7 H Albumin 4.6 Globulin 4.1 H Albumin/Globulin Ratio 1.1 Amylase Lipase 2139 H Stool Occult Blood Plasma/Serum Alcohol 63 H 08/15/20 08/15/20 08/16/20 19:15 23:25 01:22 WBC RBC Hgb Hct MCV MCH MCHC RDW Plt Count MPV Neut % (Auto) Lymph % (Auto) [place] % (Auto) Eos % (Auto) Baso % (Auto) Neut # (Auto) Lymph # (Auto) [place] # (Auto) Eos # (Auto) Baso # (Auto) Total Counted Neutrophils % (Manual) Band Neutrophils % Lymphocytes % (Manual) Monocytes % (Manual) Eosinophils % (Manual) Basophils % (Manual) Platelet Estimate RBC Morphology Hypochromasia Microcytosis Rouleaux D-Dimer 1.94 H Sodium Potassium Chloride Carbon Dioxide Anion Gap BUN Creatinine Estimated Creat Clear Estimated GFR Est GFR ( Amer) Glucose POC Glucose Calcium Phosphorus Magnesium Iron TIBC Iron Saturation Total Bilirubin AST ALT Alkaline Phosphatase Ammonia Troponin I 0.02 0.03 Total Protein Albumin Globulin Albumin/Globulin Ratio Amylase Lipase Stool Occult Blood Plasma/Serum Alcohol 08/16/20 08/16/20 08/16/20 07:00 07:00 07:00 WBC 18.6 H RBC 5.05 Hgb 15.9 Hct 45.4 MCV 90.0 MCH 31.5 H MCHC 35.0 RDW 14.3 Plt Count 120 L D MPV 7.8 Neut % (Auto) 94.0 H Lymph % (Auto) 2.5 L [place] % (Auto) 1.9 Eos % (Auto) 1.4 Baso % (Auto) 0.3 Neut # (Auto) 17.5 H Lymph # (Auto) 0.5 L [place] # (Auto) 0.4 Eos # (Auto) 0.3 Baso # (Auto) 0.1 Total Counted 100 Neutrophils % (Manual) 94 H Band Neutrophils % Lymphocytes % (Manual) 2 L Monocytes % (Manual) 3 Eosinophils % (Manual) 1 Basophils % (Manual) Platelet Estimate Normal RBC Morphology Hypochromasia 1+ Microcytosis 1+ Rouleaux D-Dimer Sodium 136 Potassium 4.0 Chloride 107 C
[2020-08-23 10:56] LABS: Calcium 7.8 mg/dl (8.4-10.2); Carbon Dioxide 30 mmol/L (22.0-30.0); Chloride 100 mmol/L (98-107); Creatinine Clearance Estimated 58 mL/min (50-200); Estimated Glomerular Filt Rate 163 ml/min (>60); GFR (African American) 198 ML/MIN (>60); Glucose 154 mg/dl (74-100); Sodium 133 mmol/L (136-145)
[2020-08-23 10:57] LABS: Blood Urea Nitrogen < 2 mg/dl (9-20)
[2020-08-24 05:19] LABS: Vitamin B6 5.4 ug/L (5.3-46.7)
[2020-08-25 06:21] LABS: Vitamin B1 176.2 nmol/L (66.5-200.0)
== END 2020-08-23 11:32 | disposition home or self-care (01) | DRG 439 ==
LOC: ER 20:36 → 2ND 21:15
PROVIDERS: Nurse Anesthetist, Certified Registered; Nurse Practitioner Family; Student in an Organized Health Care Education/Training Program; Admitting Provider Emergency Medicine; Emergency Provider Emergency Medicine; Visit Provider Emergency Medicine
DX: K85.20 Alcohol induced acute pancreatitis without necrosis or infection (principal); K86.3 Pseudocyst of pancreas; F10.10 Alcohol abuse, uncomplicated; Y90.3 Blood alcohol level of 60-79 mg/100 ml; I10 Essential (primary) hypertension; K86.0 Alcohol-induced chronic pancreatitis
CPT/HCPCS: 36415; 70450; 71045; 71275; 72128; 72131; 74021; 74178; 80048; 80053; 82140; 82150; 82272; 82962; 83540; 83550; 83690; 83735; 84100; 84207; 84425; 84484; 85007; 85025; 85378; 93005; 96365; 96366; 96375; 97110; 97116; 97162; 97166; 97530; 99284; G0328; J2405; Q9967; U0003